=== PATIENT | male | born 1945 | race Caucasian/White ===

== ENCOUNTER 2021-09-15 20:20 | Emergency (ER) | payer MEDICARE, BC ==
[~2021-09-15] VITALS: Ht 180.3 cm; Wt 90.7 kg
--- NOTE | 2021-09-17 14:07 | EKG ---
[facility] [address] [facility] [place] [address] Signed Normal sinus rhythm Nonspecific T wave abnormality Abnormal ECG No previous ECGs available Confirmed by SHANELL HUTCHINSON MD ([id number] on 09/17/2021 2:07:16 PM Electronically Signed By: SHANELL HUTCHINSON MD 09/17/21 1407 PATIENT NAME: REJI HURTADO Electrocardiogram DATE OF : 41 PHYSICIAN: SHANELL HUTCHINSON MD REPORT #: [id number] REPORT IS CONFIDENTIAL AND NOT TO BE RELEASED WITHOUT AUTHORIZATION
== END 2021-09-15 22:55 | disposition home or self-care (01) ==
LOC: ED 20:20
DX: R55 Syncope and collapse (principal); S01.81XA Laceration without foreign body of other part of head, initial encounter; S00.03XA Contusion of scalp, initial encounter; W19.XXXA Unspecified fall, initial encounter; W22.8XXA Striking against or struck by other objects, initial encounter; Y92.59 Other trade areas as the place of occurrence of the external cause; Z23 Encounter for immunization
CPT/HCPCS: 36415; 70450; 72125; 80048; 81001; 84484; 85025; 85610; 90471; 90715; 93005; 93010; 96374; 96375; 99284-25; J1815; J2270; J7030

== ENCOUNTER 2025-01-15 09:35 | Emergency (ER) | payer MEDICARE, BC ==
[~2025-01-15] VITALS: Ht 180.3 cm; Wt 89.5 kg
[2025-01-15] MEDS ORDERED: DEXTROSE 50% 50 ML SYR IV ONE (11:00)
[2025-01-15] MEDS ORDERED: DEXTROSE 10% 1,000 ML IV SCH (11:00)
[2025-01-15 14:12] VITALS: BP 146/67
== END 2025-01-15 14:13 | disposition home or self-care (01) ==
LOC: ED 09:35
DX: T38.3X1A Poisoning by insulin and oral hypoglycemic [antidiabetic] drugs, accidental (unintentional), initial encounter (principal); E11.9 Type 2 diabetes mellitus without complications; Z88.2 Allergy status to sulfonamides
CPT/HCPCS: 96365; 96366; 99284-25